=== PATIENT | male | born 1960 | race American Indian/Alaskan Native ===

== ENCOUNTER 2024-09-05 14:43 | Observation (INO) | payer BC ==
[~2024-09-05] VITALS: Ht 198.1 cm; Wt 176.8 kg
[2024-09-05 14:57] LABS: BASOPHILS 0.4 % (0.2-1.2); EOSINOPHILS 0.3 % (0.8-7.0); HEMATOCRIT 42.3 % (40.1-51.0); MCH 30.5 PG (25.7-32.2); MCHC 33.1 g/dL (32.3-36.5); MCV 92.2 fL (79.0-92.2); MONOCYTES 4.1 % (5.3-12.2); NEUTROPHILS 80.4 % (34.0-67.9); PLATELET COUNT 169 K/uL (163-337); RBC 4.59 M/uL (4.63-6.08)
[2024-09-05] MEDS ORDERED: MECLIZINE HCL 25 MG TAB PO ONE (15:00)
[2024-09-05 15:09] LABS: INR 1.01 (0.80-1.30); PROTIME 12.9 Sec (11.2-14.2)
[2024-09-05 15:11] LABS: PARTIAL THROMBOPLASTIN TIME 23.3 Sec (22.9-41.3)
[2024-09-05 15:18] LABS: ALBUMIN 3.5 g/dL (3.4-5.0); ALBUMIN/GLOBULIN RATIO 0.88 (1.1-2.4); BILIRUBIN, TOTAL 0.4 mg/dL (0.2-1.0); BUN/CREATININE RATIO 18.1 (6.0-28.6); CALCIUM 9.3 mg/dL (8.5-10.1); CREATININE, SERUM 1.16 mg/dL (0.70-1.30); PROTEIN, TOTAL 7.5 g/dL (6.4-8.2)
[2024-09-05] MEDS ORDERED: ASPIRIN325 MG PO (15:20)
[2024-09-05] MEDS ORDERED: ARTHRITIS PAIN150 G1 TOP (15:20)
[2024-09-05] MEDS ORDERED: ISOSORBIDE MONO30 MG PO (15:21)
[2024-09-05] MEDS ORDERED: LASIX20 MG PO (15:21)
[2024-09-05] MEDS ORDERED: ZESTRIL40 MG PO (15:21)
[2024-09-05 15:22] LABS: ANION GAP 15.5 (7-21); POTASSIUM 4.5 mmol/L (3.5-5.1)
[2024-09-05] MEDS ORDERED: METOPROLOL SUCC50 MG PO (15:22)
[2024-09-05] MEDS ORDERED: LISINOPRIL-HCT1 EACH PO (15:22)
[2024-09-05] MEDS ORDERED: MELOXICAM15 MG PO (15:22)
[2024-09-05] MEDS ORDERED: METFORMIN HCL500 M1 PO (15:22)
[2024-09-05] MEDS ORDERED: OMEPRAZOLE20 MG PO (15:23)
[2024-09-05] MEDS ORDERED: SIMVASTATIN40 MG PO (15:23)
[2024-09-05] MEDS ORDERED: NITROSTAT0.4 MG SL (15:23)
[2024-09-05] MEDS ORDERED: TRIAMTERENE-HC1 EAC1 PO (15:24)
[2024-09-05] MEDS ORDERED: CLOPIDOGREL BISULFATE 75 MG TAB PO ONE (16:00)
[2024-09-05] MEDS ORDERED: ASPIRIN 81 MG CHEW PO ONE (16:00)
[2024-09-05] MEDS ORDERED: IBLOOD GLUCOSE TEST STRIP 1 EA TEST XX PRN (16:45)
[2024-09-05] MEDS ORDERED: DEXTROSE 5% 1,000 ML IV PRN (16:45)
[2024-09-05] MEDS ORDERED: ondansetron HCL 4 MG/2 ML VIAL IV PRN (16:45)
[2024-09-05] MEDS ORDERED: ACETAMINOPHEN 325 MG TAB PO PRN (16:45)
[2024-09-05] MEDS ORDERED: DEXTROSE 50% 50 ML SYR IV PRN ×2 (16:45)
[2024-09-05] MEDS ORDERED: PROCHLORPERAZINE EDISYLATE 10 MG/2 ML VIAL IV PRN (16:45)
[2024-09-05] MEDS ORDERED: GLUCAGON,HUMAN RECOMBINANT 1 MG/ML VIAL SUB-Q PRN (16:45)
[2024-09-05] MEDS ORDERED: INSULIN LISPRO 100 UNIT/ML ML SUB-Q SCH (17:00)
[2024-09-05] MEDS ORDERED: IBLOOD GLUCOSE TEST STRIP 1 EA TEST VI SCH (17:00)
[2024-09-05] MEDS ORDERED: MECLIZINE HCL 25 MG TAB PO PRN (17:15)
[2024-09-05] MEDS ORDERED: PANTOPRAZOLE SO20 MG PO (17:27)
[2024-09-05 17:35] VITALS: BP 154/87
[2024-09-05 18:36] VITALS: BP 154/87
--- NOTE | 2024-09-05 19:20 | NUR ---
REPORT RECEIVED FROM DAYSHIFT RN, PATIENT RESTING IN BED AND WATCHING TV. HE DENIES ANY NEEDS. PATIENT EDUCATED ON IMPORTANCE OF USING CALL LIGHT IF HE NEEDS TO GET UP TO USE THE RESTROOM, VERBALIZED UNDERSTANDING AND DEMONSTRATED USE OF CALL LIGHT. RESPIRATIONS ARE EVEN AND UNLABORED. HE DENIES ANY NEEDS, CALL LIGHT IN REACH.
[2024-09-05 20:30] VITALS: BP 139/74
[2024-09-05 20:31] VITALS: BP 139/74
--- NOTE | 2024-09-05 20:40 | NUR ---
VS OBTAINED AND RECORDED. ASSESSMENT COMPLETE. PATIENT DENIES ANY PAIN, REPORTS HE IS STILL EXPERIENCING SOME DIZZINESS. SITTING UPRIGHT IN BED. PATIENT IS ALERT AND ORIENTED X4, DENIES NUMBNESS OR TINGLING IN EXTREMITIES, EQUAL STRENGTH IN ALL 4 EXTREMITIES. SCHEDULED MEDS GIVEN PER ORDER. FRESH WATER PROVIDED. HE DENIES OTHER NEEDS, CALL LIGHT IN REACH
--- NOTE | 2024-09-05 22:24 | NUR ---
CALL LIGHT ANSWERED, PATIENT REPORTS THAT HE HAD BEEN USING THE URINAL AND SOILED THE BED WHILE USING. FULL BED CHANGE COMPLETED AT THIS TIME. PATIENT ALSO NOTED THAT HE REMEMBERED THAT HE HAD BUMPED HIS HEAD EARLIER IN THE DAY, SMALL SCAB NOTED ON TOP OF HEAD. NO ACTIVE BLEEDING, NO BUMP NOTED. HE DENIES ANY PAIN OR HEADACHE. REPORTS DIZZINESS AND MILD NAUSEA WITH MOVEMENT. HE DENIES FURTHER NEEDS, CALL LIGHT IN REACH.
--- NOTE | 2024-09-05 22:56 | EKG ---
[facility] [address] [place] [address] Signed Normal sinus rhythm Normal ECG No previous ECGs available Confirmed by Etta Allen MD () on 09/05/2024 10:56:07 PM Electronically Signed By: ETTA ALLEN MD 09/05/24 2256 PATIENT NAME: SHANTELL GROVE Electrocardiogram DATE OF : 58 PHYSICIAN: ETTA ALLEN MD REPORT #: [id number] REPORT IS CONFIDENTIAL AND NOT TO BE RELEASED WITHOUT AUTHORIZATION
[2024-09-06] VITALS (7 sets, daily range): BP systolic 135–169; BP diastolic 52–81
--- NOTE | 2024-09-06 00:08 | NUR ---
PATIENT REPORTS THAT HE NORMALLY USES CPAP AT HOME, RT CONTACTED TO ARRANGE CPAP FOR PATIENT.
--- NOTE | 2024-09-06 01:53 | NUR ---
ROUNDED ON PATIENT, PATIENT RESTING WITH EYES CLOSED, RESPIRATIONS EVEN AND UNLABORED. WEARING CPAP PROVIDED BY RT. NO NEEDS IDENTIFIED, CALL LIGHT IN REACH.
--- NOTE | 2024-09-06 04:36 | NUR ---
ROUNDED ON PATIENT, PATIENT IS RESTING ON HIS LEFT SIDE, CPAP IN PLACE. RESPIRATIONS ARE EVEN AND UNLABORED. NO FURTHER NEEDS AT THIS TIME, CALL LIGHT IN REACH.
[2024-09-06 05:22] LABS: BASOPHILS 0.4 % (0.2-1.2); EOSINOPHILS 2.4 % (0.8-7.0); HEMATOCRIT 41.4 % (40.1-51.0); HEMOGLOBIN 13.7 g/dL (13.7-17.5); LYMPHOCYTES 21.6 % (21.8-53.1); MCH 30.9 PG (25.7-32.2); MCHC 33.1 g/dL (32.3-36.5); MCV 93.5 fL (79.0-92.2); MONOCYTES 8.6 % (5.3-12.2); NEUTROPHILS 66.6 % (34.0-67.9); PLATELET COUNT 160 K/uL (163-337); RBC 4.43 M/uL (4.63-6.08)
[2024-09-06 05:41] LABS: ALBUMIN 3.1 g/dL (3.4-5.0); ALBUMIN/GLOBULIN RATIO 0.86 (1.1-2.4); BILIRUBIN, TOTAL 0.3 mg/dL (0.2-1.0); BUN/CREATININE RATIO 15.23 (6.0-28.6); CALCIUM 8.5 mg/dL (8.5-10.1); CREATININE, SERUM 1.05 mg/dL (0.70-1.30); PHOSPHORUS, INORGANIC 3.7 mg/dL (2.5-4.9); PROTEIN, TOTAL 6.7 g/dL (6.4-8.2)
--- NOTE | 2024-09-06 05:52 | NUR ---
MRI SCREENING QUESTIONS COMPLETE. PATIENT SITTING UPRIGHT IN BED WATCHING TV, VS OBTAINED AND RECORDED. INTAKE DOCUMENTED. NEURO EXAM COMPLETE. PATIENT CONTINUES TO REPORT DIZZINESS, WHICH HE STATES IS UNCHANGED FROM PREVIOUS. PATIENT HAS NOT AMBULATED OUT OF BED, HE STATES DIZZINESS IS PRESENT WITH ANY MOVEMENT IN THE BED. SCD IN PLACE. PATIENT DENIES FURTHER NEEDS, CALL LIGHT IN REACH.
--- NOTE | 2024-09-06 07:22 | NUR ---
BUSINESS TRAVEL CONSULTANT CALLED RN TO NOTIFY OF PATIENT DIZZINESS AND NAUSEA DURING TRANSFER. REQUEST FOR PRN NAUSEA MEDICATION. PRN MEDICATION ADMINISTERED. PATIENT WITH BUSINESS TRAVEL CONSULTANT AT THIS TIME.
--- NOTE | 2024-09-06 07:25 | NUR ---
PT IS DOWN TO MRI AT TIME OF SHIFT REPORT.
[2024-09-06] MEDS ORDERED: ASPIRIN 81 MG CHEW PO SCH (08:00)
--- NOTE | 2024-09-06 08:16 | NUR ---
PT BACK FROM MRI PROCEEDURE WELL TOLERATED. SITTING UP EATING BREAKFAST AT THIS TIME. NO CHANGE IN NEURO STATUS FROM YESTERDAY PER HIS REPORT. CONTINUES TO FEEL OKAY WHILE SEATED THEN TERRIBBLY DIZZY WITH MOVEMENT OR STANDING. NO DIFFICULTY SPEAKING NO EMESIS. CALL LIGHT AND NEEDED ITEMS IN REACH
[2024-09-06] MEDS ORDERED: CLOPIDOGREL BISULFATE 75 MG TAB PO SCH (09:00)
--- NOTE | 2024-09-06 09:40 | NUR ---
PT MEETS WITH S/T CARE COORDINATED. PT CONTINUE TO BE COOPERATIVE AND ASKS APPROPRIATE QUESTIONS. WAITING TO SEE DOCTOR NOW INQUIRES ABOUT PLAN OF CARE
--- NOTE | 2024-09-06 10:25 | NUR ---
P/T IN WORKING WITH PT
--- NOTE | 2024-09-06 11:40 | NUR ---
Spoke with Joel. He is here from [place] camping at [employer]. He plans on dc to home today when medically cleared. He will call his daughter and boyfriend to pick him up and take him home. His camping gear is with the camp host at [employer]. Pt will fu with his PCP Zeyad Madrid when he gets home for further work up at [facility]. He denies futher needs.
[2024-09-06] MEDS ORDERED: PHARMACY RENAL DOSE ADJUSTMENT 1 DOSE MISC PO SCH (12:00)
--- NOTE | 2024-09-06 12:02 | NUR ---
PT UP IN THE CHAIR EATING NOON MEAL. HE HAS WORKED WITH PT/OT/ST THIS SHIFT. DENIES DIZZINESS AT THIS TIME STATES HE FEELS SO MUCH BETTER.
[2024-09-06] MEDS ORDERED: CLOPIDOGREL75 MG PO (12:39)
--- NOTE | 2024-09-06 12:41 | NUR ---
PT UP IN THE BATHROOM INDEPENDENTLY DENIES DIZZINESS. ENCOURAGED PT TO USE WALKER AND UTMOST CAUTION, HE VERBALIZES UNDERSTANDING. PT TO THE SHOWER PER REQUEST, PERSONAL CARE ITEMS PROVIDED. SHOWER CHAIR IS PRESENT ENCOURAGED PT NOT TO TIP HIS HEAD BACK OR DO ANYTHING THAT COULD MAKE HIM LOSE HIS BALANCE.
[2024-09-06] MEDS ORDERED: MECLIZINE HCL25 MG PO (12:42)
--- NOTE | 2024-09-06 13:15 | NUR ---
PT BACK FROM THE SHOWER WELL TOLERATED DENIES INCREASED DIZZINESS OR OTHER S/S.
--- NOTE | 2024-09-06 13:41 | NUR ---
UR CLINICAL REVIEW: [facility] [place], [place] REVIEW MEETS OBS FOR [facility] TIA WITH NEED FOR MRI AND ECHO MADHAV QUIGLEY PPO OBS 09/05/24 @ 1647 ORDER MATCHES REG NO AUTH REQUIRED FOR OBS STAY PER GUIDELINES DISCHARGE TO HOME WHEN MRI AND ECHO COMPLETE ANTICIPATE DC TODAY 09/07/24
--- NOTE | 2024-09-06 15:24 | NUR ---
PT SITTING UP IN THE CHAIR READING WAITING FOR HIS COMING FROM [place]. DENIES NEEDS OF AGREES TO CALL FOR ANY REASON
== END 2024-09-06 16:15 | disposition home or self-care (01) ==
LOC: ED 14:43 → MS 14:45
PROVIDERS: Emergency Medicine; ADMIT Family Medicine; ATTEND Family Medicine
DX: G45.9 Transient cerebral ischemic attack, unspecified (principal); R42 Dizziness and giddiness; E11.9 Type 2 diabetes mellitus without complications; I49.9 Cardiac arrhythmia, unspecified; E78.5 Hyperlipidemia, unspecified; G90.2 Horner's syndrome; Z79.1 Long term (current) use of non-steroidal anti-inflammatories (NSAID); Z79.82 Long term (current) use of aspirin; Z79.84 Long term (current) use of oral hypoglycemic drugs; Z79.899 Other long term (current) drug therapy
CPT/HCPCS: 36415; 70450; 70496; 70498; 70551; 71045; 80053; 80061; 83036; 83735; 84100; 84484; 85025; 85610; 85730; 92523; 92610; 93005; 93010; 93306; 94660; 96374; 97162; 97166; 97530; 97535; 99285-25; A9270; G0378; J1815; J2405; Q9967